=== PATIENT | male | born 1995 | race Caucasian/White ===

== ENCOUNTER 2017-09-14 04:18 | Emergency (ER) | payer OTHER ==
[~2017-09-14] VITALS: Ht 165.1 cm; Wt 79.4 kg
[~2017-09-14 04:18] MED LIST: ATIVAN1 MG ORAL; CYCLOBENZAPRINE10 MG ORAL; IBUPROFEN600 MG ORAL; MIRTAZAPINE45 MG ORAL; NEURONTIN100 MG ORAL; SEROQUEL200 MG ORAL
[2017-09-14 04:30] VITALS: BP 138/84
[2017-09-14] MEDS ORDERED: VYVANSE70 MG ORAL (04:33)
[2017-09-14] MEDS ORDERED: KLONOPIN1 MG ORAL (04:33)
--- NOTE | 2017-09-14 04:39 | Emergency Room Report ---
History of Present Illness General Chief Complaint: General Complaint Source: Patient Present Illness HPI Patient presents with complaints of decreased oral intake He reports that he has had some dizziness with this Denies any headache denies any chest pain Denies any vomiting or diarrhea Patient reports that he has not had access to food He does have the sensation of hunger Denies any fevers or chills Allergies: Coded Allergies: BUPROPION (Unverified Allergy, Severe, 05/26/15) QUETIAPINE (Unverified Allergy, Severe, 05/26/15) TRAZODONE (Unverified Allergy, Severe, 05/26/15) DIPHENHYDRAMINE (Unverified Allergy, Unknown, 08/05/15) HALOPERIDOL (Unverified Allergy, Unknown, 08/05/15) Patient History Past Medical History: see triage record Pertinent Family History: none Reviewed Nursing Documentation: PMH: Agreed, PSxH: Agreed Nursing Documentation-PMH Hx Cardiac Problems: No Hx Hypertension: No Hx Pacemaker: No Hx Asthma: No Hx COPD: No Hx Diabetes: No Hx Cancer: No Hx Gastrointestinal Problems: No Hx Dialysis: No History Of Psychiatric Problem: Yes - ADHD Hx Neurological Problems: No Hx Cerebrovascular Accident: No Hx Seizures: No Review of Systems All Other Systems: negative except mentioned in HPI Physical Exam Vital Signs Date Time Temp Pulse Resp B/P (MAP) Pulse Ox O2 Delivery O2 Flow Rate FiO2 09/14/17 04:28 97.9 86 16 138/84 96 Room Air 97.9 Sp02 EP Interpretation: reviewed, normal General Appearance: well appearing, no apparent distress Head: normocephalic, atraumatic Eyes: bilateral eye PERRL, bilateral eye EOMI ENT: hearing grossly normal, normal pharynx, TMs + canals normal, uvula midline Neck: full range of motion, supple, no meningismus, no bony tend Respiratory: lungs clear, normal breath sounds, no rhonchi, no respiratory distress, no retraction, no accessory muscle use Cardiovascular #1: normal peripheral pulses, regular rate, rhythm, no edema, no gallop, no JVD, no murmur Gastrointestinal: normal bowel sounds, non tender, soft, no mass, no organomegaly, non-distended, no guarding, no hernia, no pulsatile mass, no rebound Genitourinary: no CVA tenderness Musculoskeletal: normal inspection Neurologic: oriented x3, responsive, torch straightener and heater III-XII nml as tested, motor strength/ tone normal, sensory intact Psychiatric: mood/affect normal, other - Denies any homicidal or suicidal thoughts Skin: normal color, no rash, warm/dry, palpation normal Lymphatic: normal inspection, no adenopathy Medical Decision Making Diagnostic Impression: Primary Impression: Encounter for generalized patient complaints Additional Impression: Weakness ER Course Given the patient's complaints Baseline blood work was initiated to evaluate electrolyte pathology or anemia All within normal limits patient had progressive comfortably He was provided with sandwich and has outpatient follow-up properly Labs Test 09/14/17 04:31 White Blood Count 9.5 K/UL (4.8-10.8) Red Blood Count 5.89 M/UL (4.70-6.10) Hemoglobin 17.7 G/DL (14.2-18.0) Hematocrit 49.1 % (42.0-52.0) Mean Corpuscular Volume 83 FL (80-99) Mean Corpuscular Hemoglobin 30.1 PG (27.0-31.0) Mean Corpuscular Hemoglobin Concent 36.1 G/DL (32.0-36.0) Red Cell Distribution Width 10.9 % (11.6-14.8) Platelet Count 266 K/UL (150-450) Mean Platelet Volume 7.1 FL (6.5-10.1) Neutrophils (%) (Auto) 61.2 % (45.0-75.0) Lymphocytes (%) (Auto) 28.1 % (20.0-45.0) Monocytes (%) (Auto) 8.0 % (1.0-10.0) Eosinophils (%) (Auto) 1.0 % (0.0-3.0) Basophils (%) (Auto) 1.6 % (0.0-2.0) Sodium Level 137 MMOL/L (136-145) Potassium Level 3.4 MMOL/L (3.5-5.1) Chloride Level 104 MMOL/L (98-107) Carbon Dioxide Level 22 MMOL/L (21-32) Anion Gap 11 mmol/L (5-15) Blood Urea Nitrogen 22 mg/dL (7-18) Creatinine 0.8 MG/DL (0.55-1.30) Estimat Glomerular Filtration Rate > 60 mL/min (>60) Glucose Level 85 MG/DL (74-106) Calcium Level 8.6 MG/DL (8.5-10.1) Last Vital Signs Date Time Temp Pulse Resp B/P (MAP) Pulse Ox O2 Delivery O2 Flow Rate FiO2 09/14/17 04:28 97.9 86 16 138/84 96 Room Air 97.9 Status: improved Disposition: HOME, SELF-CARE Condition: Stable Referrals: NOT CHOSEN IPA/MD,REFERRING (PCP) Additional Instructions: Patient is provided with the discharge instructions notified to follow up with primary doctor in the next 2-3 days otherwise return to the er with any worsening symptoms. Please note that this report is being documented using [employer] technology. This can lead to erroneous entry secondary to incorrect interpretation by the dictating instrument. FELIZ SHOEMAKER D.O. Sep 14, 2017 04:39
[2017-09-14 04:52] LABS: BASOPHILS % (AUTO) 1.6 % (0.0-2.0); HEMATOCRIT 49.1 % (42.0-52.0); HEMOGLOBIN 17.7 G/DL (14.2-18.0); LYMPHOCYTES % (AUTO) 28.1 % (20.0-45.0); MEAN CORPUSCULAR VOLUME 83 FL (80-99); NEUTROPHILS % (AUTO) 61.2 % (45.0-75.0); PLATELET COUNT 266 K/UL (150-450); RED BLOOD COUNT 5.89 M/UL (4.70-6.10); RED CELL DISTRIBUTION WIDTH 10.9 % (11.6-14.8); WHITE BLOOD COUNT 9.5 K/UL (4.8-10.8)
[2017-09-14 04:58] LABS: ANION GAP 11 mmol/L (5-15); BLOOD UREA NITROGEN 22 mg/dL (7-18); CALCIUM 8.6 MG/DL (8.5-10.1); CARBON DIOXIDE 22 MMOL/L (21-32); CHLORIDE 104 MMOL/L (98-107); CREATININE 0.8 MG/DL (0.55-1.30); POTASSIUM 3.4 MMOL/L (3.5-5.1); SODIUM 137 MMOL/L (136-145)
[2017-09-14 05:40] VITALS: BP 138/84
== END 2017-09-14 05:40 | disposition home or self-care (01) ==
LOC: EMR 04:36
DX: R53.1 Weakness (principal); R42 Dizziness and giddiness; F90.9 Attention-deficit hyperactivity disorder, unspecified type
CPT/HCPCS: 36415; 80048; 85025; 99282

== ENCOUNTER 2017-11-12 23:55 | Inpatient (IN) | payer OTHER ==
[~2017-11-12] VITALS: Ht 182.9 cm; Wt 81.6 kg
[~2017-11-12 23:55] MED LIST changes: +KLONOPIN1 MG ORAL; +VYVANSE70 MG ORAL
[2017-11-12] MEDS ORDERED: Naloxone 1mg/ml 2ml ONE (23:59)
[2017-11-13] VITALS (9 sets, daily range): BP systolic 106–140; BP diastolic 58–78
[2017-11-13] MEDS ORDERED: Naloxone 1mg/ml 2ml IM ONE
--- NOTE | 2017-11-13 | Emergency Room Report ---
History of Present Illness General Chief Complaint: Alcohol Intoxication Source: EMS Present Illness HPI Patient is a 22-year-old male brought in by EMS after increased altered mental status. The patient was found unresponsive and [facility]. The patient had I reportedly walked into the [facility] himself. The patient had reported prior history of heroin abuse. The per EMS patient smelled of EtOH. The patient was noted to have adequate respirations by EMS was not given Narcan. Allergies: Coded Allergies: BUPROPION (Unverified Allergy, Severe, 05/26/15) QUETIAPINE (Unverified Allergy, Severe, 05/26/15) TRAZODONE (Unverified Allergy, Severe, 05/26/15) DIPHENHYDRAMINE (Unverified Allergy, Unknown, 08/05/15) HALOPERIDOL (Unverified Allergy, Unknown, 08/05/15) Patient History Past Medical History: see triage record Reviewed Nursing Documentation: PMH: Agreed; PSxH: Agreed Nursing Documentation-PMH Past Medical History: No History, Except For Hx Cardiac Problems: No Hx Hypertension: No Hx Pacemaker: No Hx Asthma: No Hx COPD: No Hx Diabetes: No Hx Cancer: No Hx Gastrointestinal Problems: No Hx Dialysis: No Hx Cerebrovascular Accident: No Hx Seizures: No Review of Systems All Other Systems: limited - by mental status Physical Exam Vital Signs Date Time Temp Pulse Resp B/P (MAP) Pulse Ox O2 Delivery O2 Flow Rate FiO2 11/12/17 23:47 97.0 117 16 125/82 95 Room Air 97.0 Sp02 EP Interpretation: reviewed, normal General Appearance: normal inspection, well appearing, no apparent distress, alert Head: atraumatic Eyes: bilateral eye other - pinpoint pupils ENT: normal ENT inspection, hearing grossly normal, normal voice Neck: normal inspection, full range of motion, supple, no bony tend Respiratory: normal inspection, lungs clear, normal breath sounds, no respiratory distress, no retraction, no wheezing Cardiovascular #1: regular rate, rhythm, no edema Gastrointestinal: normal inspection, normal bowel sounds, non tender, soft, no guarding, no hernia Genitourinary: no CVA tenderness Musculoskeletal: normal inspection, back normal, normal range of motion Neurologic: motor weakness Psychiatric: normal inspection, judgement/insight normal, mood/affect normal Skin: no rash, abrasions - right hand near mcp joint with eschar Medical Decision Making Diagnostic Impression: Primary Impression: Altered mental status Additional Impressions: Hx of substance abuse Encephalopathy acute ER Course Patient was in for altered mental status. Differential diagnosis included but was not limited to ischemic stroke, overdose, meningitis, subarachnoid hemorrhage, hypoglycemia, spinal cord injury, neurodegenerative disorder, urinary tract infection, hypoxemia.The patient was noted to have some bruising near the right eye. CT head read by radiology showed no evident acute hemorhage or CVA. Patients blood sugar was adequate. He was given Narcan without evident mental change. Patient was started on Thiamine and given IV Fluids. Dr. Av Morales was contacted for inpatient management due to panel physician. Labs Test 11/13/17 00:15 11/13/17 05:03 White Blood Count 11.4 K/UL (4.8-10.8) Red Blood Count 5.38 M/UL (4.70-6.10) Hemoglobin 16.0 G/DL (14.2-18.0) Hematocrit 45.6 % (42.0-52.0) Mean Corpuscular Volume 85 FL (80-99) Mean Corpuscular Hemoglobin 29.8 PG (27.0-31.0) Mean Corpuscular Hemoglobin Concent 35.1 G/DL (32.0-36.0) Red Cell Distribution Width 10.8 % (11.6-14.8) Platelet Count 211 K/UL (150-450) Mean Platelet Volume 7.3 FL (6.5-10.1) Neutrophils (%) (Auto) 64.0 % (45.0-75.0) Lymphocytes (%) (Auto) 24.9 % (20.0-45.0) Monocytes (%) (Auto) 8.5 % (1.0-10.0) Eosinophils (%) (Auto) 1.1 % (0.0-3.0) Basophils (%) (Auto) 1.5 % (0.0-2.0) Sodium Level 141 MMOL/L (136-145) Potassium Level 3.7 MMOL/L (3.5-5.1) Chloride Level 104 MMOL/L (98-107) Carbon Dioxide Level 24 MMOL/L (21-32) Anion Gap 13 mmol/L (5-15) Blood Urea Nitrogen 11 mg/dL (7-18) Creatinine 0.8 MG/DL (0.55-1.30) Estimat Glomerular Filtration Rate > 60 mL/min (>60) Glucose Level 121 MG/DL (74-106) Calcium Level 8.2 MG/DL (8.5-10.1) Total Bilirubin 0.6 MG/DL (0.2-1.0) Aspartate Amino Transf (AST/SGOT) 90 U/L (15-37) Alanine Aminotransferase (ALT/SGPT) 75 U/L (12-78) Alkaline Phosphatase 65 U/L (46-116) Total Protein 7.8 G/DL (6.4-8.2) Albumin 3.9 G/DL (3.4-5.0) Globulin 3.9 g/dL Albumin/Globulin Ratio 1.0 (1.0-2.7) Salicylates Level 1.8 ug/mL (2.8-20) Urine Opiates Screen Negative (NEGATIVE) Acetaminophen Level < 2 MCG/ML (10-30) Urine Barbiturates Screen Negative (NEGATIVE) Phencyclidine (PCP) Screen Negative (NEGATIVE) Urine Amphetamines Screen Negative (NEGATIVE) Urine Benzodiazepines Screen Negative (NEGATIVE) Urine Cocaine Screen Negative (NEGATIVE) Urine Marijuana (THC) Screen Negative (NEGATIVE) Serum Alcohol 47 mg/dL Arterial Blood pH 7.357 (7.350-7.450) Arterial Blood Partial Pressure CO2 45.8 mmHg (35.0-45.0) Arterial Blood Partial Pressure O2 82.7 mmHg (75.0-100.0) Arterial Blood HCO3 25.1 mmol/L (22.0-26.0) Arterial Blood Oxygen Saturation 96.0 % (92.0-98.0) Arterial Blood Base Excess -0.7 Jose Test Positive EKG Diagnostic Results Rate: normal Rhythm: NSR ST Segments: no acute changes ASA given to the pt in ED: No Rhythm Strip Diag. Results EP Interpretation: yes Rhythm: NSR, no PVC's, no ectopy Last Vital Signs Date Time Temp Pulse Resp B/P (MAP) Pulse Ox O2 Delivery O2 Flow Rate FiO2 11/12/17 23:47 97.0 117 16 125/82 95 Room Air 97.0 Status: unchanged Disposition: ADMITTED INPATIENT Condition: Yanick Pruett November 13, 2017 00:00
[2017-11-13 00:54] LABS: ANION GAP 13 mmol/L (5-15); BLOOD UREA NITROGEN 11 mg/dL (7-18); CALCIUM 8.2 MG/DL (8.5-10.1); CARBON DIOXIDE 24 MMOL/L (21-32); CHLORIDE 104 MMOL/L (98-107); CREATININE 0.8 MG/DL (0.55-1.30); POTASSIUM 3.7 MMOL/L (3.5-5.1); SODIUM 141 MMOL/L (136-145)
[2017-11-13 00:56] LABS: BASOPHILS % (AUTO) 1.5 % (0.0-2.0); EOSINOPHILS % (AUTO) 1.1 % (0.0-3.0); HEMATOCRIT 45.6 % (42.0-52.0); LYMPHOCYTES % (AUTO) 24.9 % (20.0-45.0); MEAN CORPUSCULAR VOLUME 85 FL (80-99); MONOCYTES % (AUTO) 8.5 % (1.0-10.0); PLATELET COUNT 211 K/UL (150-450); RED BLOOD COUNT 5.38 M/UL (4.70-6.10); RED CELL DISTRIBUTION WIDTH 10.8 % (11.6-14.8); WHITE BLOOD COUNT 11.4 K/UL (4.8-10.8)
[2017-11-13 00:58] LABS: ALANINE AMINOTRANSFERASE 75 U/L (12-78); ALBUMIN 3.9 G/DL (3.4-5.0); ALKALINE PHOSPHATASE 65 U/L (46-116); ASPARTATE AMINO TRANSFERASE 90 U/L (15-37); BILIRUBIN,TOTAL 0.6 MG/DL (0.2-1.0)
[2017-11-13] MEDS ORDERED: Thiamine HCl 100 MG in D5W 55 ML IVPB SCH (06:00)
--- NOTE | 2017-11-13 10:24 | History & Physical ---
History and Physical History & Physicial HP dictated # [id number] ACACIA MEYERS November 13, 2017 10:24
[2017-11-13] MEDS ORDERED: QUEtiapine 200mg tab ORAL SCH (10:30)
[2017-11-13] MEDS ORDERED: SERTRALINE HCL50 MG ORAL (10:53)
[2017-11-13] MEDS ORDERED: PROPRANOLOL HCL10 MG ORAL (10:53)
[2017-11-13] MEDS ORDERED: OLANZAPINE10 MG ORAL (10:53)
[2017-11-13] MEDS ORDERED: D5W w/KCl 20mEq 1,000 ML IV SCH (11:25)
--- NOTE | 2017-11-13 11:36 | Cardiology Report ---
APPROVED REPORT EKG Measurement Heart [id number] Normal sinus rhythm Normal ECG
[2017-11-13] MEDS ORDERED: LORazepam Inj 2mg/ml 1ml IV PRN (14:00)
[2017-11-13] MEDS: D5W w/KCl 20mEq 1,000 ML IV SCH (18:30)
[2017-11-13] MEDS: LORazepam Inj 2mg/ml 1ml IV PRN (19:55)
--- NOTE | 2017-11-13 21:30 | History and Physical Report ---
DATE OF ADMISSION: 11/13/2017 CHIEF COMPLAINT: Change in mental status. HISTORY OF PRESENT ILLNESS: This is a 22-year-old white male who was brought in by paramedics after he was found to have change in mental status. Apparently, the patient was found unresponsive at the [facility]. . Right now, he is awake, but completely confused and unable to provide any history. The patient had previous history of heroin abuse and the patient was smelling of alcohol. PAST MEDICAL HISTORY: unobtainableat this time. MEDICATIONS: Reviewed in EMR. ALLERGIES: Unknown. SOCIAL HISTORY: Unobtainable. REVIEW OF SYSTEMS: Unobtainable. PHYSICAL EXAMINATION: GENERAL: The patient is a 22-year-old male. He moves around. Does not respond to questions. VITAL SIGNS: Blood pressure is 111/73, pulse 97, temperature 97.5 degrees, and respiratory rate is 17. HEENT: [place] conjunctivae. Anicteric sclerae. NECK: Supple. LUNGS: Clear to auscultation. HEART: S1 and S2 without murmurs or rubs. ABDOMEN: Soft and nontender. EXTREMITIES: No cyanosis or edema. LABORATORY FINDINGS: The CBC shows WBC of 11.4, hematocrit is 35.6, hemoglobin 16, and platelets 211,000. The chemistry panel shows sodium of 141, potassium 3.7, bicarbonate is 24, BUN is 11, creatinine is 0.8, blood sugar is 121, and calcium is 8.2. AST 90 and ALT of 75. Albumin is 3.9. The toxicology screen is only positive for serum alcohol, which was 47. ASSESSMENT: This is a 22-year-old white male with a previous history of drug abuse, who now presents with change in mental status. So far, diagnosis of alcohol intoxication. PLAN: The patient will be hydrated with IV fluids, NPO at this time until the patient is more alert. Sedation will be given as needed and I will also ask Psychiatry to follow the patient. . Av Morales M.D. DR: Nate JOB#: [id number] CC: MARISOL
[2017-11-14] VITALS: BP 123/74
[2017-11-14] MEDS: LORazepam Inj 2mg/ml 1ml IV PRN (02:51)
[2017-11-14] MEDS: D5W w/KCl 20mEq 1,000 ML IV SCH (03:07)
[2017-11-14] MEDS ORDERED: Thiamine HCl 100 MG in D5W 55 ML IVPB SCH ×4 (06:00)
[2017-11-14] MEDS ORDERED: Tubing IV Secondary IV ONE (06:39)
[2017-11-14] MEDS ORDERED: QUEtiapine 200mg tab ORAL SCH (09:00)
--- NOTE | 2017-11-16 08:34 | Discharge Summary ---
Discharge Summary Discharge Summary Discharge Summary DATE OF ADMISSION: 11/13/2017 DATE OF DISCHARGE: 11/14/2017 (patient signed AMA) REASON FOR ADMISSION: 22 years old male was brought by paramedics with altered mental status. Patient was found unresponsive in [facility]. Patient reportedly walked into the spiritism by himself. Patient with prior history of heroine abuse. Paramedics were not given Narcan since patient had adequate respirations and was able to protect his airway. Upon evaluation in emergency department, urine toxicology screen was negative, serum alcohol level was 47. Blood sugar was stable. CT of the head ,as read by radiology, showed no evidence of acute hemorrhage or CVA. Patient was given Narcan without significant change in mental status. WBC with mild elevation -11.4 electrolytes stable, AST 90. ABG was stable. EKG showed normal sinus rhythm, no acute ischemic changes. Patient was started on IV banana bag and admitted for further management with diagnosis of altered mental status, history of substance-abuse. acute encephalopathy HOSPITAL COURSE: Patient was admitted. Patient was continued with IV fluids /banana bag. Patient was kept nothing by mouth until more awake. Psychiatry evaluation was requested. Patient was closely monitored. Later on. on November 14 patient became awake, alert, and able to make his needs known. Patient decided to sign against medical advice. The risks and consequences of signing AGAINST MEDICAL ADVICE were discussed with patient in detail. Patient verbalized understanding , nevertheless signed AMA form and left. FINAL DIAGNOSES: Acute encephalopathy Alcohol intoxication History of substance abuse I have been assigned to dictate discharge summary for this account. I was not involved in the patient's management. Alannah Khan NP ([place]) November 16, 2017 08:34
== END 2017-11-14 06:40 | disposition left against medical advice (07) | DRG 770 ==
LOC: EDBD 23:55 → EMR 23:59 → 2E 11-13 06:00 → EDBEDREQ 11-13 06:19 → 4W 11-13 17:25
DX: F10.129 Alcohol abuse with intoxication, unspecified (principal); G93.40 Encephalopathy, unspecified; Z53.21 Procedure and treatment not carried out due to patient leaving prior to being seen by health care provider
CPT/HCPCS: 36415; 36600; 70450; 80053; 80307; 80329; 82803; 82962; 85025; 87081; 93005; 99285; J2310